=== PATIENT | female | born 1945 | race Two or more races ===

== ENCOUNTER → 2019-07-19 | Emergency (ER) | payer OTHER, MEDICAID ==
[~2019-07-19] VITALS: Ht 152.4 cm; Wt 136.1 kg
[~2019-07-19] MED LIST: FUROSEMIDE 20 MG/2 ML VIAL IV ONE; LIDOCAINE 1% HCL (LOCAL ANESTH.) INJ 20ML MDV ID ONE
[2019-07-19 19:02] LABS: Basophils # (auto) 0 10 ^3/uL (0-0.2); Basophils % (auto) 0.4 % (0.0-2.0); Eosinophils # (auto) 0.1 10 ^3/uL (0-0.8); Eosinophils % (auto) 1.5 % (0.0-7.0); Hematocrit 30.1 % (36.0-46.0); Hemoglobin 9.8 g/dL (12.2-16.2); Lymphocytes # (auto) 1.7 10 ^3/uL (0.4-5.4); Lymphocytes % (auto) 25.3 % (10.0-50.0); Mean Corpuscular Hemoglobin 32.9 pg (28.0-32.0); Mean Corpuscular Hgb Conc. 32.5 g/dL (32.0-36.0); Monocytes # (auto) 0.7 10 ^3/uL (0-1.3); Neutrophils # (auto) 4.2 10 ^3/uL (1.6-8.6); Neutrophils % (auto) 62.8 % (37.0-80.0); Nucleated Red Blood Cells % 0.1 %; Platelet Count (auto) 192 10^3/uL (140-450); Red Blood Cells 2.98 10^6/uL (4.0-5.20); Red Cell Distribution Width 16.9 % (11.8-14.3); White Blood Cell 6.6 10^3/uL (4.4-10.8)
[2019-07-19 19:19] LABS: Alanine Aminotransferase 35 U/L (13-56); Albumin 3.1 g/dL (3.4-5.0); Anion Gap 7 (5-15); Aspartate Aminotransferase 39 U/L (15-37); BUN/Creatinine Ratio 20.1; Blood Alcohol < 3.0 mg/dL (0-5); Blood Urea Nitrogen 54 mg/dL (7-18); Calcium 8.2 mg/dL (8.5-10.1); Carbon Dioxide 28 mmol/L (21-32); Chloride 102 mmol/L (98-107); GFR African American 22 mL/min; GFR Non-African American 18 mL/min; Glucose 175 mg/dL (74-106); Magnesium 2.2 mg/dL (1.6-2.6); Potassium 4.4 mmol/L (3.5-5.1); Sodium 137 mmol/L (136-145)
[2019-07-19 19:24] LABS: Alkaline Phosphatase 124 U/L (45-117); Bilirubin, Total 0.7 mg/dL (0.2-1.0); Total Protein 8.6 g/dL (6.4-8.2)
[2019-07-19 20:09] LABS: Urine Bacteria NONE SEEN /hpf (None Seen); Urine Blood Negative /uL (Negative); Urine Hyaline Cast MANY /lpf (0 - 2); Urine Mucus FEW (None Seen); Urine Specific Gravity 1.014 (1.001-1.035); Urine WBC 2 /hpf (0 - 5)
[2019-07-19 20:16] LABS: INR 1.26 (0.9-1.15); Partial Thromboplastin Time 27.3 sec (23.64-32.05)
[2019-07-19 20:18] LABS: Amphetamine Screen, Urine NEGATIVE (NEGATIVE); Barbiturate Scree,Urine NEGATIVE (NEGATIVE); Benzodiazephine Screen, Urine NEGATIVE (NEGATIVE); Cannabinoid Screen, Urine NEGATIVE (NEGATIVE); Cocaine Screen, Urine NEGATIVE (NEGATIVE); Opiate Scree,Urine NEGATIVE (NEGATIVE); Phencyclidine Screen, Urine NEGATIVE (NEGATIVE)
[2019-07-20 03:19] LABS: Basophils # (auto) 0 10 ^3/uL (0-0.2); Basophils % (auto) 0.4 % (0.0-2.0); Eosinophils # (auto) 0.1 10 ^3/uL (0-0.8); Eosinophils % (auto) 2.2 % (0.0-7.0); Hematocrit 28.5 % (36.0-46.0); Hemoglobin 9.1 g/dL (12.2-16.2); Lymphocytes % (auto) 33.1 % (10.0-50.0); Mean Corpuscular Hemoglobin 31.9 pg (28.0-32.0); Mean Corpuscular Volume 99.8 fL (80.0-100.0); Monocytes # (auto) 0.9 10 ^3/uL (0-1.3); Monocytes % (auto) 14.5 % (0.0-12.0); Neutrophils % (auto) 49.8 % (37.0-80.0); Nucleated Red Blood Cells % 0.1 %; Platelet Count (auto) 178 10^3/uL (140-450); Red Blood Cells 2.86 10^6/uL (4.0-5.20); Red Cell Distribution Width 16.5 % (11.8-14.3)
[2019-07-20 08:36] VITALS: BP 135/57
== END | disposition home or self-care (01) ==
LOC: EDUNIT# 18:14 → EDBD 18:18 → ER 18:18
DX: R41.82 Altered mental status, unspecified (principal); E11.22 Type 2 diabetes mellitus with diabetic chronic kidney disease; I13.0 Hypertensive heart and chronic kidney disease with heart failure and stage 1 through stage 4 chronic kidney disease, or unspecified chronic kidney disease; N18.9 Chronic kidney disease, unspecified; I50.89 Other heart failure; J44.9 Chronic obstructive pulmonary disease, unspecified
CPT/HCPCS: 36415; 70450; 71045; 80053; 80307; 80320; 81001; 82140; 82962; 83605; 83735; 83880; 84443; 84484; 85025; 85610; 85730; 87040; 87077; 87186; 93005; 96374; 99285; J1940

== ENCOUNTER → 2022-10-25 | Day surgery (SDC) | payer OTHER, MEDICAID ==
[~2022-10-25] VITALS: Ht 165.1 cm; Wt 113.0 kg
[~2022-10-25] MED LIST changes: +CALCIUM GLUC 1,000mg/50ml-NS 50 ML IV ONE; +DEXTROSE (50%) 50ML SYRG IV ONE; -FUROSEMIDE 20 MG/2 ML VIAL IV ONE; +HEPARIN SODIUM (PORCINE) 5000 UNITS/ML 1ML VIAL ONE; +InsuLIN REG 1unit/0.01ml Soln (100units/ml) IV ONE; -LIDOCAINE 1% HCL (LOCAL ANESTH.) INJ 20ML MDV ID ONE; +LIDOCAINE 2%HCL (LOCAL ANESTH.) INJ 20ML MDV ONE; +MIDAZOLAM HCL 2MG/2ML 2ml VIAL (1mg/ml) ONE; +SODIUM ZIRCONIUM CYCL 10 GM PAK PO ONE; +fentaNYL CITRATE 100 MCG/2 ML VL ONE
[2022-10-25 08:09] VITALS: BP 129/35
[2022-10-25 08:42] LABS: Basophils # (auto) 0 10 ^3/uL (0-0.2); Eosinophils # (auto) 0.2 10 ^3/uL (0-0.8); Lymphocytes # (auto) 2.5 10 ^3/uL (0.4-5.4); Monocytes # (auto) 0.8 10 ^3/uL (0-1.3); Neutrophils # (auto) 5.1 10 ^3/uL (1.6-8.6); Nucleated Red Blood Cells % 0.1 %; Red Cell Distribution Width 13.9 % (11.8-14.3)
[2022-10-25 08:44] LABS: Basophils % (auto) 0.5 % (0.0-2.0); Eosinophils % (auto) 2.8 % (0.0-7.0); Hematocrit 29.3 % (36.0-46.0); Hemoglobin 9.9 g/dL (12.2-16.2); Lymphocytes % (auto) 28.6 % (10.0-50.0); Mean Corpuscular Hgb Conc. 33.7 g/dL (32.0-36.0); Neutrophils % (auto) 59.1 % (37.0-80.0); Red Blood Cells 2.82 10^6/uL (4.0-5.20); White Blood Cell 8.7 10^3/uL (4.4-10.8)
[2022-10-25 09:00] LABS: Albumin 3.1 g/dL (3.4-5.0); Calcium 8.3 mg/dL (8.5-10.1); Potassium 5.5 mmol/L (3.5-5.1)
[2022-10-25 09:06] LABS: BUN/Creatinine Ratio 10.6 (10.0-20.0); Bilirubin, Total 0.4 mg/dL (0.2-1.0); Total Protein 6.8 g/dL (6.4-8.2)
[2022-10-25 09:35] LABS: INR 1.02 (0.9-1.15); Partial Thromboplastin Time 26.9 sec (24.6-33.4)
== END | disposition home or self-care (01) ==
LOC: EDUNIT# 07:00 → ER 07:13 → EDBD 07:13 → CATH 07:14 → ER 20:06
PROVIDERS: ATTEND Internal Medicine Cardiovascular Disease
DX: T82.41XA Breakdown (mechanical) of vascular dialysis catheter, initial encounter (principal); E11.22 Type 2 diabetes mellitus with diabetic chronic kidney disease; I13.2 Hypertensive heart and chronic kidney disease with heart failure and with stage 5 chronic kidney disease, or end stage renal disease; N18.6 End stage renal disease; I50.9 Heart failure, unspecified; J44.9 Chronic obstructive pulmonary disease, unspecified; Z90.49 Acquired absence of other specified parts of digestive tract; Z88.1 Allergy status to other antibiotic agents
CPT/HCPCS: 36415; 36581; 76937; 77001; 80053; 85025; 85610; 85730; 86850; 86900; 86901; 93005; 99285; C1769; J0610; J1644; J7040; 99152; J2250